=== PATIENT | male | born 1935 | race Caucasian/White ===

== ENCOUNTER 2017-06-09 18:23 | Inpatient (IN) | payer BC, MEDICARE ==
[~2017-06-09] VITALS: Ht 182.9 cm; Wt 99.4 kg
[~2017-06-09 18:23] MED LIST: ACET325T53 GT; CALC3.8S NS; DIGO250T PO; IPRA3AMP IH; LACT10SO43 GT; LAMO100T PO; LORA1TAB PO; MELA1TAB10 GT; MULT9LIQ6 GT; ONDA4TAB5 GT; SENN8.6T6 GT; THIA100T13 PO; ZOLP5TAB7 PO; [UNRECOGNIZED DRUG - CODE] GT
[2017-06-09] MEDS ORDERED: LEVETIRACETAM (500MG) 500 MG in IV NS 0.9% 100 ML IV SCH (18:30)
--- NOTE | 2017-06-09 18:30 | NUR ---
PATIENT BIB RA D/T SEIZURE AT HOME. PATIENT IS ALTERED CURRENTLY. BREATHING EVEN AND UNLABORED. BLOOD SUGAR WNL. NO SOB. VITALS STABLE. SAFETY AND COMFORT MEASURES IN PLACE. AWAITING MD ORDERS.
[2017-06-09 18:39] LABS: BASOPHILS # (AUTO) 0.2 /CMM (0.0-0.2); EOSINOPHILS # (AUTO) 0.5 /CMM (0.0-0.7); EOSINOPHILS % (AUTO) 2.8 % (0.0-6.0); HEMATOCRIT 44 % (39-51); HEMOGLOBIN 14.5 g/dL (13.5-17.5); LYMPHOCYTES # (AUTO) 4.4 /CMM (0.8-4.8); LYMPHOCYTES % (AUTO) 26.9 % (20.0-44.0); MEAN CORPUSCULAR HEMOGLOBIN 29 PG (26.0-33.0); MEAN CORPUSCULAR HGB CONC 33 g/dl (31.0-36.0); MEAN CORPUSCULAR VOLUME 90 fL (80-96); MONOCYTES # (AUTO) 1.9 /CMM (0.1-1.30); MONOCYTES % (AUTO) 11.5 % (2.0-12.0); NEUTROPHILS # (AUTO) 9.3 /CMM (1.8-8.9); NEUTROPHILS % (AUTO) 57.8 % (43.0-81.0); PLATELET COUNT (AUTO) 259 /CMM (150-450); RDW COEFFICIENT OF VARIATION 13.4 (11.5-15.0); RED BLOOD CELL COUNT(AUTO) 4.94 MIL/uL (4.5-6.0); WHITE BLOOD COUNT (AUTO) 16.3 K/uL (4.3-11.0)
--- NOTE | 2017-06-09 18:40 | NUR ---
NEW IV STARTED ON RAC, 18 G. BLOOD DRAWN AND SENT TO LAB. RECTAL TEMP 98.3, DR. ROSA MADE AWARE.
--- NOTE | 2017-06-09 18:45 | NUR ---
PATIENT TAKEN TO CT VIA STRETCHER.
[2017-06-09 18:49] LABS: CALCIUM, SERUM 8.9 mg/dL (8.5-10.1); CARBON DIOXIDE 27 mmol/L (21-32); CHLORIDE 100 mmol/L (98-107); CREATININE 1.2 mg/dL (0.6-1.3); GLUCOSE 121 mg/dL (74-106); POTASSIUM 4.4 mmol/L (3.5-5.1); SODIUM SERUM 139 mmol/L (136-145); UREA NITROGEN, BLOOD 18 mg/dL (7-18)
[2017-06-09 18:53] LABS: INR 1.05 (0.87-1.13); PROTHROMBIN TIME 10.9 SECS (9.5-12.7)
[2017-06-09 18:55] LABS: ALANINE AMINOTRANSFERASE 33 U/L (12-78); ALBUMIN 3.1 g/dL (3.4-5.0); ALKALINE PHOSPHATASE 70 U/L (46-116); ASPARTATE AMINOTRANSFERASE 24 U/L (15-37); BILIRUBIN,DIRECT 0.1 mg/dL (0.0-0.2); BILIRUBIN,TOTAL 0.3 mg/dL (0.2-1.0); TOTAL PROTEIN, SERUM 7.8 g/dL (6.4-8.2)
[2017-06-09 19:00] LABS: TROPONIN I < 0.017 ng/mL (0.00-0.056)
--- NOTE | 2017-06-09 19:05 | NUR ---
PATIENT RETURNED FROM CT.
--- NOTE | 2017-06-09 19:10 | NUR ---
REPORT GIVEN TO LINNETTE FRANCISCO FOR GUILLERMINA.
[2017-06-09 19:21] LABS: APPEARANCE,URINE Clear (CLEAR); BILIRUBIN,URINE Negative (NEGATIVE); BLOOD, URINE Negative Ery/uL (NEGATIVE); COLOR,URINE Yellow (YELLOW); KETONES,URINE Negative (NEGATIVE); LEUKOCYTE ESTERASE ,URINE Negative (NEGATIVE); NITRITE, URINE Positive (NEGATIVE); PROTEIN,URINE Negative (NEGATIVE); UGLUCOSE Negative (NEGATIVE); UROBILINOGEN,URINE 0.2 EU/dL (0.2)
[2017-06-09 19:24] LABS: BACTERIA,URINE Moderate /HPF (None Seen); RBC,URINE 0-2 /HPF (0-2); SQUAMOUS EPITHELIAL CELL,UR Few /HPF (None Seen); WBC,URINE 0-2 /HPF (0-3)
[2017-06-09] MEDS ORDERED: PIPERACILLIN /TAZOBACTAM 3.375 G in IV D5W 50 ML IV ONE (20:00)
--- NOTE | 2017-06-09 20:09 | NUR ---
CALLED NURSING SUP. FOR [facility] BED
[2017-06-09 20:24] LABS: BAND % (MANUAL) 3 % (0.0-5.0); LYMPHOCYTES % (MANUAL) 26 % (16-48); MONOCYTES % (MANUAL) 9 % (0-11.0); NEUTROPHILS % (MANUAL) 60 (42-76)
[2017-06-09 20:25] LABS: EOSINOPHILS % (MANUAL) 2 % (0-4)
[2017-06-09] MEDS ORDERED: IV NS 0.9% 1,000 ML BAG IV ONE (20:30)
[2017-06-09] MEDS ORDERED: VANCOMYCIN 1 GM in IV D5W 250 ML IV ONE (20:30)
--- NOTE | 2017-06-09 21:09 | NUR ---
LINDSAY MASSEY, SON,
[2017-06-09] MEDS ORDERED: LORAZEPAM 1 MG TABLET PO PRN (22:30)
[2017-06-09] MEDS ORDERED: ONDANSETRON HCL/PF 4 MG/2 ML VIAL IVP PRN (22:30)
[2017-06-09] MEDS ORDERED: Medication Not On Formulary EA (Ipratropium/Albuterol Sulfate (Duoneb 2.5-0.5 Mg/3 Ml So IH PRN (22:30)
[2017-06-09] MEDS ORDERED: MAGNESIUM HYDROXIDE 30 ML UDC PO PRN (22:30)
[2017-06-09] MEDS ORDERED: Medication Not On Formulary EA (Melatonin/Pyridoxine (Melatonin 3 Mg Tablet) 1 EACH) GT PRN (22:30)
[2017-06-09] MEDS ORDERED: Z GUARD REMEDY 2 OZ OINT TP PRN (22:30)
[2017-06-09] MEDS ORDERED: ACETAMINOPHEN 325 MG TABLET PO PRN (22:30)
[2017-06-09] MEDS ORDERED: ZOLPIDEM TARTRATE 5 MG TABLET PO PRN (22:30)
[2017-06-09] MEDS ORDERED: MAG HYDROX/AL HYDROX/SIMETH 30 ML UDC PO PRN (22:30)
--- NOTE | 2017-06-09 22:30 | NUR ---
[facility] RN NOTE ADMITTED 81 YEARS OLD MALE PT FROM ER WITH THE DX OF SEIZURE AND SEPSIS BY TAMANNA HART NP. PT IN BED ALOC. MUMBLES ONLY. NO SOB, NO DISTRESS OR DISCOMFORT NOTED. NO S/S OF PAIN NOTED. PT IS GETTING NS IV FLUIDS DUE TO HIGH LACTIC ACID WHICH IS CONTINUE FROM ER. NO S/S OF INFILTRATION NOTED. F/C INTACT AND PATENT DRAINING YELLOWISH COLOR URINE 850 ML OUTPUT NOTED AT THIS TIME. SKIN ASSESSMENT DONE. PICTURES TAKEN AND PLACE THEM IN THE CHART. ADMITTING ORDERS CHECKED AND CARRIED OUT. ON TELE SR HR 83. SIDE RAILS UP X 3 AND CALL LIGHT WITHIN REACH. VSS. CONTINUE TO MONITOR HIM. Addendum: 06/09/17 at 2317 by CLEVELAND KONG RN PT PLACED ON SEIZURE PRECAUTIONS.
[2017-06-09] MEDS ORDERED: CEFTRIAXONE 1 G VIAL ONE (23:22)
[2017-06-09] MEDS: IV NS 0.9% 1,000 ML IV PRN (23:32)
[2017-06-09] MEDS: CEFTRIAXONE 1 G in IV D5W 50 ML IV SCH (23:32)
--- NOTE | 2017-06-09 23:35 | NUR ---
STEAM CLEAN MACHINE OPERATOR NOTE PT IS UNDER TELE UNIT NOT [facility]
[2017-06-10 04:00] VITALS: BP 125/72
[2017-06-10 06:33] LABS: BASOPHILS % (AUTO) 0.3 % (0.0-2.0); EOSINOPHILS # (AUTO) 0.3 /CMM (0.0-0.7); EOSINOPHILS % (AUTO) 1.8 % (0.0-6.0); HEMATOCRIT 40 % (39-51); HEMOGLOBIN 13.5 g/dL (13.5-17.5); LYMPHOCYTES # (AUTO) 2.1 /CMM (0.8-4.8); LYMPHOCYTES % (AUTO) 14.2 % (20.0-44.0); MEAN CORPUSCULAR HEMOGLOBIN 30 PG (26.0-33.0); MEAN CORPUSCULAR HGB CONC 34 g/dl (31.0-36.0); MEAN CORPUSCULAR VOLUME 89 fL (80-96); MONOCYTES # (AUTO) 1.6 /CMM (0.1-1.30); MONOCYTES % (AUTO) 10.6 % (2.0-12.0); NEUTROPHILS # (AUTO) 10.8 /CMM (1.8-8.9); NEUTROPHILS % (AUTO) 73.1 % (43.0-81.0); PLATELET COUNT (AUTO) 210 /CMM (150-450); RDW COEFFICIENT OF VARIATION 14.2 (11.5-15.0); RED BLOOD CELL COUNT(AUTO) 4.47 MIL/uL (4.5-6.0); WHITE BLOOD COUNT (AUTO) 14.7 K/uL (4.3-11.0)
--- NOTE | 2017-06-10 06:34 | NUR ---
ADVISOR TO COMMAND IN COMBAT NOTE PT IN BED ASLEEP, AROUSABLE. NO DISTRESS OR DISCOMFORT NOTED. NO SS OF PAIN NOTED. ON TELE SR. BM X 1. CONDOM CATH INTACT AND PATENT. DRAINING YELLOWISH COLOR URINE. SIDE RAILS UP X 3 AND CALL LIGHT WITHIN REACH. WILL ENDORSE TO DAY SHIFT NURSE FOR CONTINUE TO CARE.
[2017-06-10 07:00] LABS: CALCIUM, SERUM 7.6 mg/dL (8.5-10.1); CARBON DIOXIDE 25 mmol/L (21-32); CHLORIDE 107 mmol/L (98-107); GLUCOSE 100 mg/dL (74-106); MAGNESIUM 2.1 mg/dL (1.8-2.4); POTASSIUM 4.5 mmol/L (3.5-5.1); SODIUM SERUM 142 mmol/L (136-145); UREA NITROGEN, BLOOD 15 mg/dL (7-18)
[2017-06-10 07:01] LABS: CHOLESTEROL 130 mg/dL (<200); HDL CHOLESTEROL 37 mg/dL (40-60); LDL 82 mg/dL (0-99); THYROID STIMULATING HORMONE 3.665 uIU/mL (0.358-3.74); TRIGLYCERIDES 94 mg/dL (30-150)
[2017-06-10] MEDS: PANTOPRAZOLE 40 MG TABLET.DR PO SCH (07:30)
--- NOTE | 2017-06-10 07:35 | NUR ---
TRAFFIC ENUMERATOR INITIAL NOTE RECEIVED PT IN NO ACUTE DISTRESS. ON TELE WITH SR 83. RIGHT AC 18 G NS RUNNING AT 100CC/HR. PATIENT PENDING FURTHER EVALUATION PER - CURRENTLY NPO PENDING VISIT G-TUBE CLAMPED. PT COMFORTABLE POSITION IN BED. SAFETY/COMFORT MEASURES PLACED RN WILL CONTINUE TO MONITOR.
[2017-06-10 08:00] VITALS: BP 133/68
[2017-06-10] MEDS ORDERED: IPRATROPIUM NEB FS 0.5 MG/2.5 ML AMPUL.NEB NEB PRN (09:00)
[2017-06-10] MEDS: SENNOSIDES 8.6 MG TABLET GT SCH (09:00)
[2017-06-10] MEDS: THIAMINE HCL 100 MG TABLET PO SCH (09:00)
[2017-06-10] MEDS ORDERED: MULTIVITS,TH W-FE,OTHER MIN 1 TAB TABLET GT SCH (09:00)
[2017-06-10] MEDS: LamoTRIgine 100 MG TABLET PO SCH ×2 (09:00→17:42)
[2017-06-10] MEDS: CALCITONIN,SALMON,SYNTHETIC 3.7 ML SPRAY.PUMP NS SCH (09:00)
[2017-06-10] MEDS ORDERED: ALBUTEROL FS 2.5 MG/3 ML VIAL.NEB NEB PRN (09:00)
[2017-06-10] MEDS ORDERED: LACTULOSE 10 G/15 ML UDC (PYXIS) GT PRN (09:00)
[2017-06-10] MEDS: LEVETIRACETAM (500MG) 500 MG in IV NS 0.9% 100 ML IV SCH ×2 (12:12→20:37)
[2017-06-10] MEDS: DIGOXIN 0.25 MG TABLET PO SCH (13:00)
[2017-06-10] MEDS: IV NS 0.9% 1,000 ML IV PRN (15:59)
--- NOTE | 2017-06-10 18:54 | NUR ---
RN NOTE RN CONTACTED MD ANGLIN IN REGARDS TO ORDERING A 1X TIME DOSE OF PAIN MEDICATION FOR THE PATIENT. DURING BED BATH IT WAS NOTED THAT THE PATIENT HAS SCROTUM REDNESS AND PAIN NOTED. PT SON REQUESTING PAIN MEDICATION. TYLENOL 650 MG OFFERED BUT THE SON REQUEST SOMETHING STRONGER. IT SHOULD ALSO BE NOTED THAT THE PATIENT HAS REDNESS AT G-TUBE SITE. AND PAIN NOTED RN AWAITING RETURN PHONE CALL , RN HAS CONTACTED THE KITCHEN IN REGARDS TO THE PATIENT TUBE FEEDING FOR FIBERSOURCE X3 TIMES KITCHEN STATES THAT THEY WILL BRING THE TUBE FEEDING SOON POSSIBLE RN WILL ENDORSE TO PM NURSE.
--- NOTE | 2017-06-10 19:05 | NUR ---
RN OPENING NOTES RECEIVED REPORT FROM WARREN FRANCISCO. PATIENT A/A/O X2-3. ON O2 @ 2LPM VIA NC, NO RESPIRATORY DISTRESS NOTED. BREATHING EVEN AND UNLABORED. ON TELE, SR IN THE 70S. NO S/S OF PAIN OR DISCOMFORT. RAC #18 CDI. G-TUBE INTACT, ABDOMINAL BINDER IN PLACE. SIDE RAILS UP, BED LOCKED AND IN LOWEST POSITION. WILL CONTINUE TO MONITOR.
--- NOTE | 2017-06-10 19:47 | NUR ---
RN END OF SHIFT NOTE PT STABLE REPORT GIVEN TO PM NURSE ENDORSED CONTINUATION OF CARE ON 2 L NC. PATIENT ALERT / ORIENTED x 1-2 . ALL NEEDS ATTENDED.
[2017-06-10 20:00] VITALS: BP 134/70
[2017-06-10] MEDS: CEFTRIAXONE 1 G in IV D5W 50 ML IV SCH (22:13)
[2017-06-11] VITALS: BP 127/58
[2017-06-11] MEDS: IV NS 0.9% 1,000 ML IV PRN ×2 (03:41→15:15)
[2017-06-11 04:00] VITALS: BP 101/52
[2017-06-11] MEDS: FIBERSOURCE HN 1,000 ML BOTTLE GT PRN ×2 (05:57→16:25)
[2017-06-11 06:32] LABS: BASOPHILS % (AUTO) 0.3 % (0.0-2.0); EOSINOPHILS # (AUTO) 0.2 /CMM (0.0-0.7); EOSINOPHILS % (AUTO) 1.5 % (0.0-6.0); HEMATOCRIT 41 % (39-51); HEMOGLOBIN 13.7 g/dL (13.5-17.5); LYMPHOCYTES # (AUTO) 3.4 /CMM (0.8-4.8); LYMPHOCYTES % (AUTO) 21.5 % (20.0-44.0); MEAN CORPUSCULAR HEMOGLOBIN 30 PG (26.0-33.0); MEAN CORPUSCULAR HGB CONC 34 g/dl (31.0-36.0); MEAN CORPUSCULAR VOLUME 90 fL (80-96); MONOCYTES % (AUTO) 12.4 % (2.0-12.0); NEUTROPHILS # (AUTO) 10.3 /CMM (1.8-8.9); NEUTROPHILS % (AUTO) 64.3 % (43.0-81.0); PLATELET COUNT (AUTO) 178 /CMM (150-450); RDW COEFFICIENT OF VARIATION 14.7 (11.5-15.0); RED BLOOD CELL COUNT(AUTO) 4.53 MIL/uL (4.5-6.0); WHITE BLOOD COUNT (AUTO) 15.9 K/uL (4.3-11.0)
[2017-06-11 06:48] LABS: CALCIUM, SERUM 7.8 mg/dL (8.5-10.1); CARBON DIOXIDE 26 mmol/L (21-32); CHLORIDE 107 mmol/L (98-107); GLUCOSE 124 mg/dL (74-106); MAGNESIUM 2.3 mg/dL (1.8-2.4); PHOSPHORUS 2.4 mg/dL (2.5-4.9); POTASSIUM 4.2 mmol/L (3.5-5.1); SODIUM SERUM 141 mmol/L (136-145); UREA NITROGEN, BLOOD 18 mg/dL (7-18)
--- NOTE | 2017-06-11 07:15 | NUR ---
RN CLOSING NOTES PATIENT ASLEEP IN BED. NO ACUTE MENTAL CHANGES NOTED, NO SEIZURES SURING SHIFT. NO RESPIRATORY DISTRESS OR SOB THROUGHOUT SHIFT ON O2 @ 2LPM VIA NC. GT INTACT AND FLUSHING W/ FIBERSOURCE HN @ 75 ML/HR, TOLERATED WELL. EMESIS X1 DURING SHIFT, RELIEVED BY PRN ZOFRAN. WILL ENDORSE GUILLERMINA TO AM NURSE.
--- NOTE | 2017-06-11 07:15 | NUR ---
[facility] INITIAL RN NOTE: RECEIVED PT AWAKE IN BED W/NO SIGNS OF DISTRESS, A&OX1. ON O2 @ 2LPM VIA NC WITH NO SOB. RESPIRATIONS EVEN AND UNLABORED. ON TELE MONITOR SR. HEP LOCK INFILTRATED WILL INSERT NEW ONE. NS RUNNING AT 100 CC/HR. GT INTACT W/FIBERSOURCE HN AT 75CC/HR, REDNESS NOTED, 30CC RESIDUAL. HAS ABDOMINAL BINDER. BED KEPT LOCKED AND IN LOWEST POSITION W/SIDE RAILS UP WITH PADDING. CALL LIGHT WITHIN REACH. ALL NEEDS MET AND ANTICIPATED. WILL CONTINUE TO MONITOR.
[2017-06-11 07:48] LABS: EOSINOPHILS % (MANUAL) 2 % (0-4); LYMPHOCYTES % (MANUAL) 17 % (16-48); MONOCYTES % (MANUAL) 5 % (0-11.0); NEUTROPHILS % (MANUAL) 76 (42-76)
[2017-06-11 08:00] VITALS: BP 116/71
[2017-06-11] MEDS: LEVETIRACETAM (500MG) 500 MG in IV NS 0.9% 100 ML IV SCH ×2 (09:23→21:41)
[2017-06-11] MEDS: SENNOSIDES 8.6 MG TABLET GT SCH (09:23)
[2017-06-11] MEDS: LamoTRIgine 100 MG TABLET PO SCH ×2 (09:23→16:22)
[2017-06-11] MEDS: THIAMINE HCL 100 MG TABLET PO SCH (09:23)
[2017-06-11] MEDS: MULTIVIT, IRON, MIN NO. 8, FA 1 TAB GT SCH (09:23)
[2017-06-11] MEDS: SULFAMETH/TRIMETH 800/160 MG 1 UDTAB TABLET PO SCH ×2 (09:23→21:41)
[2017-06-11] MEDS: CALCITONIN,SALMON,SYNTHETIC 3.7 ML SPRAY.PUMP NS SCH (09:23)
[2017-06-11] MEDS: PANTOPRAZOLE 40 MG TABLET.DR PO SCH (09:24)
--- NOTE | 2017-06-11 09:30 | NUR ---
OPERATIONAL INTELLIGENCE ANALYST NOTE: DR. ANGLIN AT BEDSIDE. NOTIFIED OF UNABLE TO INSERT IV AT ARM. OK TO INSERT IV AT FOOT PER DR. ANGLIN. NEW ORDER GIVEN AND CARRIED OUT.
--- NOTE | 2017-06-11 10:00 | NUR ---
HEEL CUTTER NOTE: PATIENT SEEN BY DR MAYERS AT BEDSIDE. PT EVAL AND DVT PUMP ORDERED. WILL FOLLOW UP.
[2017-06-11 10:45] LABS: FREE PSA 0.42 ng/mL (0.00-45); PROSTATE SPECIFIC ANTIGEN SCR 7.04 ng/mL (0.00-4.00)
[2017-06-11 12:00] VITALS: BP 129/66
--- NOTE | 2017-06-11 13:00 | NUR ---
AVIATION SAFETY INSPECTOR NOTE SEEN BY PT UNABLE TO GET UP ON CHAIR, UNABLE TO STAND UP ,WILL F\U
[2017-06-11] MEDS: DIGOXIN 0.25 MG TABLET PO SCH (13:03)
[2017-06-11 16:00] VITALS: BP 138/60
[2017-06-11] MEDS ORDERED: NEUTRA PHOS 1 POWD.PACKET NG ONE (16:00)
--- NOTE | 2017-06-11 16:30 | NUR ---
BRIM WELT SEWING MACHINE OPERATOR NOTE CONT ON IVF ORDERED,ON DVT PUMPS ORDERED .NOT IN ACUTE DISTRESS
--- NOTE | 2017-06-11 18:57 | NUR ---
LICENSED PHYSICAL THERAPIST ASSISTANT CLOSING NOTES: PATIENT AWAKE IN BED W/NO C/O PAIN. ON O2 @ 2LPM VIA W/NO SOB OR RESPIRATORY DISTRESS. GT INTACT AND FLUSHING W/ FIBERSOURCE HN @ 75 CC/HR, TOLERATED WELL. HAS ABDOMINAL BINDER. NS RUNNING AT 100CC/HR. DVT PUMP APPLIED. BED KEPT LOCKED AND IN LOWEST POSITION W/SIDE RAILS UP WITH PADDING. CALL LIGHT WITHIN REACH. WILL ENDORSE TO PM NURSE FOR GUILLERMINA.
--- NOTE | 2017-06-11 19:40 | NUR ---
TELE/RN NOTES RECEIVED PT IN STABLE CONDITION. AWAKE, A&OX 1, PLEASANT MAN. O2 1L NC. TELE READING NSR. L FOOT IV #24 WITH NS @ 100 ML/HR INFUSING WELL, SITE CDI. GTF FIBERSOURCE @ 75 ML/HR IN PROGRESS, RESIDUAL 5ML, SITE CDI AND COVERED WITH ABDOMINAL BINDER. INCONTINENT. DENIES PAIN, N/V. NO CONCERNS MADE. PT MADE AWARE OF PLAN OF CARE INCLUDING MEDICATION SCHEDULED. PT RESPONDS WITH "OK" AND STARTS TALKING ABOUT OTHER TOPICS. DVT PUMP IN PLACE. BED AT LOWEST POSITION AND LOCKED, SRX3 UP, SIDE TABLE AND CALL GAMEZ WITHIN REACH. BED ALARM ON. WILL CONTINUE TO MONITOR. Addendum: 06/12/17 at 0002 by SILVA BANSAL RN SDTI TO JAYME BUTTOCKS, BLANCHABLE. TURNED AND REPOSITIONED. WILL KEEP SKIN CLEAN, DRY AND INTACT.
[2017-06-11 20:00] VITALS: BP 133/69
--- NOTE | 2017-06-11 22:00 | NUR ---
TELE/RN NOTES PURPLISH COLOR TO JAYME BUTTOCKS, BLANCHABLE. APPLIED Z-GUARD. TURNED AND REPOSITIONED. WILL KEEP SKIN CLEAN, DRY AND INTACT.
[2017-06-11] MEDS: CEFTRIAXONE 1 G in IV D5W 50 ML IV SCH (22:39)
[2017-06-12] VITALS (9 sets, daily range): BP systolic 105–141; BP diastolic 62–87
[2017-06-12 05:50] LABS: BASOPHILS # (AUTO) 0.2 /CMM (0.0-0.2); BASOPHILS % (AUTO) 1.3 % (0.0-2.0); EOSINOPHILS # (AUTO) 0.5 /CMM (0.0-0.7); EOSINOPHILS % (AUTO) 3.5 % (0.0-6.0); HEMATOCRIT 37 % (39-51); HEMOGLOBIN 12.8 g/dL (13.5-17.5); LYMPHOCYTES # (AUTO) 2.9 /CMM (0.8-4.8); LYMPHOCYTES % (AUTO) 21.9 % (20.0-44.0); MEAN CORPUSCULAR HEMOGLOBIN 31 PG (26.0-33.0); MEAN CORPUSCULAR HGB CONC 34 g/dl (31.0-36.0); MEAN CORPUSCULAR VOLUME 89 fL (80-96); MONOCYTES # (AUTO) 1.4 /CMM (0.1-1.30); MONOCYTES % (AUTO) 10.9 % (2.0-12.0); NEUTROPHILS # (AUTO) 8.2 /CMM (1.8-8.9); NEUTROPHILS % (AUTO) 62.4 % (43.0-81.0); PLATELET COUNT (AUTO) 172 /CMM (150-450); RDW COEFFICIENT OF VARIATION 14.6 (11.5-15.0); RED BLOOD CELL COUNT(AUTO) 4.17 MIL/uL (4.5-6.0); WHITE BLOOD COUNT (AUTO) 13.2 K/uL (4.3-11.0)
[2017-06-12 06:05] LABS: CALCIUM, SERUM 7.6 mg/dL (8.5-10.1); CARBON DIOXIDE 24 mmol/L (21-32); CHLORIDE 107 mmol/L (98-107); CREATININE 0.9 mg/dL (0.6-1.3); GLUCOSE 124 mg/dL (74-106); PHOSPHORUS 2.6 mg/dL (2.5-4.9); POTASSIUM 4.1 mmol/L (3.5-5.1); SODIUM SERUM 139 mmol/L (136-145); UREA NITROGEN, BLOOD 16 mg/dL (7-18)
[2017-06-12] MEDS: IV NS 0.9% 1,000 ML IV PRN ×2 (06:19→18:19)
--- NOTE | 2017-06-12 07:25 | NUR ---
TELE/RN NOTES NO SIGNIFICANT CHANGES. A&OX1, TALKING TO SELF. BREATHING EVENLY ON O2 1L NC. TELE READING NSR. IVF AND GT FEEDING IN PROGRESS. INCONTINENT. KEPT SKIN CLEAN, DRY AND INTACT. TURNED AND REPOSITIONED Q2H AND PATIENT PERMITS. NO EPISODE OF SEIZURE AND DENIES PAIN THE ENTIRE SHIFT. ENDORSED TO AM SHIFT FOR CONTINUITY OF CARE. SAFETY MAINTAINED, INCLUDING SIDE RAILS PADDED. SIDE TABLE AND CALL GAMEZ WITHIN REACH.
--- NOTE | 2017-06-12 07:38 | NUR ---
CURTAIN FRAMER NOTES RECEIVED PT IN BED AWAKE WITH CONFUSION. ON TELE MONITOR SR. PT HAS PADDED SIDE RAILS, SEIZURE PRECAUTION FOR SAFETY. GTUBE RUNNING, NO RESIDUAL. HOB ELEVATED. L FOOT IV HEP LOCK IN TACT, NO SIGNS OF INFECTION. ON IV FLUIDS ORDERED. DVT PUMPS ON BOTH LEGS. PT ON 2 L NASAL CANNULA SATING 94%. BED IN LOWEST POSITION, LOCKED, CALL LIGHT WITHIN REACH. WILL CONTINUE TO MONITOR.
--- NOTE | 2017-06-12 08:03 | NUR ---
SPOKE WITH YADI REGARDING NEW ORDER UA FOR PROSTATITIS. WILL F/O WITH .
[2017-06-12] MEDS: MULTIVIT, IRON, MIN NO. 8, FA 1 TAB GT SCH (08:20)
[2017-06-12] MEDS: SULFAMETH/TRIMETH 800/160 MG 1 UDTAB TABLET PO SCH ×2 (08:20→21:36)
[2017-06-12] MEDS: THIAMINE HCL 100 MG TABLET PO SCH (08:20)
[2017-06-12] MEDS: SENNOSIDES 8.6 MG TABLET GT SCH (08:20)
[2017-06-12] MEDS: LamoTRIgine 100 MG TABLET PO SCH ×2 (08:20→16:32)
[2017-06-12] MEDS: PANTOPRAZOLE 40 MG TABLET.DR PO SCH (08:20)
[2017-06-12] MEDS: CALCITONIN,SALMON,SYNTHETIC 3.7 ML SPRAY.PUMP NS SCH (08:21)
[2017-06-12] MEDS: FIBERSOURCE HN 1,000 ML BOTTLE GT PRN (08:22)
[2017-06-12] MEDS: LEVETIRACETAM SOL (5 ML) 100 MG/ML UDC GT SCH ×2 (08:35→21:36)
--- NOTE | 2017-06-12 11:14 | NUR ---
LACROSSE PLAYER NOTES UA COLLECTED ORDERED FOR PROCTITIS. NEW IV INSERT R HAND GAUGE 22. PT REPOSITIONED. SKIN CLEAN AND DRY. CALL LIGHT WITHIN REACH. WILL CONTINUE TO MONITOR.
[2017-06-12] MEDS: DIGOXIN 0.25 MG TABLET PO SCH (12:18)
--- NOTE | 2017-06-12 14:00 | NUR ---
telegraph office manager note all needs attended ,not in acute distress, keep clean dryn,cont on ivf as ordered
--- NOTE | 2017-06-12 17:19 | NUR ---
DIRECTOR OF PROMOTIONS NOTES PT RESTING COMFORTABLY WITH SON AT BEDSIDE. GTUBE FEEDING RUNNING NO RESIDUAL. NO SOB NOTED. WILL CONTINUE TO MONITOR.
--- NOTE | 2017-06-12 17:43 | NUR ---
CATEGORY MANAGER NEW ORDER FOR UA CULTURE , CALLED LAB SPOKE TO CATHI TRAMMELL TO USE THE SAME URINE SPECIMEN FROM THIS AM THAT WAS SENT FOR PROCTITIS PATHOGENS.
--- NOTE | 2017-06-12 19:01 | NUR ---
ELECTROENCEPHALOGRAM TECHNOLOGIST NOTES PT SLEEPING COMFORTABLY IN BED, SATING WELL. NO DISTRESS NOTED. IV FLUIDS RUNNING. SIDE RAILS UP X3, BED LOCKED AND IN LOWEST POSITION, SEIZURE PRECAUTIONS, CALL LIGHT WITHIN REACH.
[2017-06-12] MEDS: CEFTRIAXONE 1 G in IV D5W 50 ML IV SCH (22:05)
[2017-06-13] VITALS: BP 125/57
[2017-06-13] MEDS: FIBERSOURCE HN 1,000 ML BOTTLE GT PRN ×2 (01:13→15:20)
[2017-06-13 04:00] VITALS: BP 117/63
[2017-06-13] MEDS: IV NS 0.9% 1,000 ML IV PRN ×2 (04:43→18:07)
[2017-06-13 06:43] LABS: BASOPHILS # (AUTO) 0.1 /CMM (0.0-0.2); BASOPHILS % (AUTO) 0.5 % (0.0-2.0); EOSINOPHILS # (AUTO) 0.5 /CMM (0.0-0.7); EOSINOPHILS % (AUTO) 4.4 % (0.0-6.0); HEMATOCRIT 37 % (39-51); HEMOGLOBIN 12.4 g/dL (13.5-17.5); LYMPHOCYTES # (AUTO) 2.5 /CMM (0.8-4.8); LYMPHOCYTES % (AUTO) 21.7 % (20.0-44.0); MEAN CORPUSCULAR HEMOGLOBIN 30 PG (26.0-33.0); MEAN CORPUSCULAR HGB CONC 34 g/dl (31.0-36.0); MEAN CORPUSCULAR VOLUME 90 fL (80-96); MONOCYTES # (AUTO) 1.4 /CMM (0.1-1.30); MONOCYTES % (AUTO) 12.2 % (2.0-12.0); NEUTROPHILS # (AUTO) 7.1 /CMM (1.8-8.9); NEUTROPHILS % (AUTO) 61.2 % (43.0-81.0); PLATELET COUNT (AUTO) 163 /CMM (150-450); RDW COEFFICIENT OF VARIATION 14.6 (11.5-15.0); WHITE BLOOD COUNT (AUTO) 11.5 K/uL (4.3-11.0)
[2017-06-13 07:18] LABS: CALCIUM, SERUM 7.4 mg/dL (8.5-10.1); CARBON DIOXIDE 25 mmol/L (21-32); CHLORIDE 107 mmol/L (98-107); GLUCOSE 106 mg/dL (74-106); PHOSPHORUS 2.6 mg/dL (2.5-4.9); POTASSIUM 4.1 mmol/L (3.5-5.1); SODIUM SERUM 140 mmol/L (136-145); UREA NITROGEN, BLOOD 11 mg/dL (7-18)
--- NOTE | 2017-06-13 07:21 | NUR ---
DEMONSTRATOR SEWING TECHNIQUES opening NOTES PT RECEIVED ASLEEP IN BED IN NO ACUTE SIGNS OF DISTRESS. APPEARS COMFORTABLE WITH SUPPLEMENTAL 02 VIA N/C AT 2LPM, BREATHING EVEN AND UN-LABORED. WILL CONTINUE SEIZURE PRECAUTIONS. IV FLUIDS OF NS @ 100ML/HR INFUSING TO RIGHT HAND. G-TUBE INTACT AND PATENT WITH FEEDING OF FIBER SOURCE AT 75ML/HR RUNNING. ASPIRATION PRECAUTIONS MAINTAINED. BED WITH SIDE RAILS UP X3, LOCKED AND IN LOWEST POSITION, CALL LIGHT WITHIN REACH. WILL MAINTAIN ALL SAFETY MEASURES AND WILL CONTINUE TO MONITOR PT ACCORDINGLY.
[2017-06-13 08:00] VITALS: BP 120/69
[2017-06-13] MEDS: MULTIVIT, IRON, MIN NO. 8, FA 1 TAB GT SCH (08:41)
[2017-06-13] MEDS: PANTOPRAZOLE 40 MG TABLET.DR PO SCH (08:41)
[2017-06-13] MEDS: LamoTRIgine 100 MG TABLET PO SCH ×2 (08:41→17:03)
[2017-06-13] MEDS: THIAMINE HCL 100 MG TABLET PO SCH (08:41)
[2017-06-13] MEDS: SENNOSIDES 8.6 MG TABLET GT SCH (08:41)
[2017-06-13] MEDS: LEVETIRACETAM SOL (5 ML) 100 MG/ML UDC GT SCH ×2 (08:42→21:05)
[2017-06-13] MEDS: SULFAMETH/TRIMETH 800/160 MG 1 UDTAB TABLET PO SCH ×2 (08:42→21:05)
[2017-06-13] MEDS: CALCITONIN,SALMON,SYNTHETIC 3.7 ML SPRAY.PUMP NS SCH (08:43)
--- NOTE | 2017-06-13 09:34 | NUR ---
RN NOTES PATIENT SEEN AND EVALUATED BY DR LEE, ORDERED TELE-MONITORING TO BE DISCONTINUED. ORDERED CARRIED OUT, NO S/S OF CHEST PAIN OT DISCOMFORTS OBSERVED. WILL CONTINUE TO MONITOR.
[2017-06-13] MEDS: DIGOXIN 0.25 MG TABLET PO SCH (12:16)
[2017-06-13 16:00] VITALS: BP 137/67
--- NOTE | 2017-06-13 18:45 | NUR ---
RN CLOSING NOTES PT RESTING IN BED AWAKE, ALERT AND ORIENTED X1. NO SIGNIFICANT CHANGES NOTED THROUGHOUT THE DAY. MAINTAINED ON 02 VIA N/C AT 2LPM, BREATHING EVEN AND UN-LABORED, NO SOB NOTED. IV FLUIDS OF NS @ 100ML/HR INFUSING TO RIGHT HAND. G-TUBE INTACT AND PATENT WITH FEEDING OF FIBER SOURCE @ 75ML/HR IN PROGRESS. ASPIRATION PRECAUTIONS MAINTAINED. NO SEIZURE ACTIVITY NOTED . KEPT BED WITH SIDE RAILS UP X3, LOCKED AND IN LOWEST POSITION, CALL LIGHT WITHIN REACH. MAINTAINED ALL SAFETY AND SEIZURE PRECAUTIONS. ALL NEEDS AND CARE PROVIDED WELL. WILL ENDORSED TO SALESPERSON SHOES NURSE FOR GUILLERMINA.
--- NOTE | 2017-06-13 19:22 | NUR ---
RN NOTES PER DAY SHIFT NURSE DR ROSA PANDEY ORDERED TO DOWNGRADE TO MED/SURG STATUS BUT CURRENT ORDER STILL FOR TELE, NO CURRENT TELEMETRY MONITORING. ORDER CHANGED FOR MED/SURG STATUS
--- NOTE | 2017-06-13 19:30 | NUR ---
RN INITIAL NOTES RECEIVED PATIENT IN BED, AWAKE, ALERT AND ORIENTED X1, CONFUSED. BREATHING IS EVEN AND NONLABORED WHILE ON O2 VIA NASAL CANNULA @ 2LPM, TOLERATING WELL, FREE FROM ANY S/S OF RESPIRATORY DISTRESS. ON GTF OF FBS @ 75ML/HR, TOLERATING WELL, NO GASTRIC RESIDUALS AT THIS TIME. NOTED WITH R HAND #[id number], WITH IVF OF NS @ 100ML/HR, TOLERATING WELL, FLUSHED WITH NS, FREE FROM ANY S/S OF INFILTRATION OR PHLEBITIS. PATIENT KEPT COMFORTABLE. BED IN LOWEST AND LOCKED POSITION. WILL CONTINUE TO CLOSELY MONITOR
[2017-06-13 20:00] VITALS: BP 140/65
--- NOTE | 2017-06-13 21:15 | NUR ---
RN NOTES PATIENT NOTED TO BE ANXIOUS AND AGITATED COMPARED TO HIS BASELINE, NOTED TO SOMETIMES GRAB GTUBE AND IV LINE. PATIENT REPOSITIONED, LINES AND TUBES HIDDEN WITH PILLOWS, ADMINISTERED ATIVAN GT ORDERED. WILL CONTINUE TO CLOSELY MONITOR
[2017-06-13] MEDS: CEFTRIAXONE 1 G in IV D5W 50 ML IV SCH (21:32)
--- NOTE | 2017-06-13 22:51 | NUR ---
RN NOTES PATIENT ENDORSED TO NURSE REYNA FOR GUILLERMINA
[2017-06-14 04:00] VITALS: BP 119/66
[2017-06-14] MEDS: IV NS 0.9% 1,000 ML IV PRN (06:27)
[2017-06-14] MEDS: FIBERSOURCE HN 1,000 ML BOTTLE GT PRN (06:27)
--- NOTE | 2017-06-14 07:10 | NUR ---
MS RN NOTES RECEIVED PATIENT IN BED, AWAKE. A//O X1, CONFUSED. ON OXYGEN AT 2LPM VIA NC, BREATHING EVEN AND NON LABORED, NO SOB. GTUBE FEEDING-FIBERSOURCE INFUSING AT 75ML/HR. APPEARS COMFORTABLE IN BED, HOB ELEVATED. BED LOW AND LOCKED. CALL LIGHT WITHIN REACH. WILL CONT TO MONITOR.
--- NOTE | 2017-06-14 07:35 | NUR ---
RN EOS NOTE PT REMAINED STABLE DURING THE SHIFT. NO ANY DISTRESS NOTED. IVF G TUBE FEEDING TOLERATED WELL. NO RESIDUAL. ASPIRATION PRECAUTION APPLIED. TOTAL CARE RENDERED . ENDORSED TO NEXT SHIFT RN FOR CONTINUITY OF CARE .
[2017-06-14 08:00] VITALS: BP 130/70
[2017-06-14] MEDS: SENNOSIDES 8.6 MG TABLET GT SCH (09:09)
[2017-06-14] MEDS: LEVETIRACETAM SOL (5 ML) 100 MG/ML UDC GT SCH (09:09)
[2017-06-14] MEDS: LamoTRIgine 100 MG TABLET PO SCH (09:09)
[2017-06-14] MEDS: SULFAMETH/TRIMETH 800/160 MG 1 UDTAB TABLET PO SCH (09:10)
[2017-06-14] MEDS: THIAMINE HCL 100 MG TABLET PO SCH (09:10)
[2017-06-14] MEDS: PANTOPRAZOLE 40 MG TABLET.DR PO SCH (09:10)
[2017-06-14] MEDS: MULTIVIT, IRON, MIN NO. 8, FA 1 TAB GT SCH (09:10)
[2017-06-14] MEDS: CALCITONIN,SALMON,SYNTHETIC 3.7 ML SPRAY.PUMP NS SCH (09:19)
--- NOTE | 2017-06-14 11:26 | NUR ---
PATIENT IS SEEN BY [facility]. PATIENT TO BE DISCHARGED HOME WITH HOME HEALTH TODAY, FAMILY IS AWARE.
[2017-06-14] MEDS: DIGOXIN 0.25 MG TABLET PO SCH (12:44)
--- NOTE | 2017-06-14 14:31 | NUR ---
MS RN DISCHARGED NOTES PATIENT HAS BEEN CLEARED FOR DISCHARGED HOME WITH HOME HEALTH. PATIENT IS CONFUSED, NON AMBULATORY, SKIN INTACT. COPIES OF DISCHARGE INSTRUCTION PROVIDED TO THE PATIENT, PRESCRIPTION MEDICATIONS AND BELONGINGS SEND WITH THE PATIENT UPON DC. V/S REMAINS STABLE, NO EPISODE OF SEIZURES OR FEVER DURING THE SHIFT PRIOR DC. PATIENT LEFT HOSP IN STABLE CONDITION VIA AMBULANCE.
== END 2017-06-14 14:15 | disposition home health service (06) | DRG 100 ==
LOC: ER 18:24 → TELE-TD 21:30 → TELE1 23:21 → MEDSG1 06-13 10:15
PROVIDERS: ADMIT Nurse Practitioner Acute Care; ATTEND Nurse Practitioner Acute Care
DX: G40.409 Other generalized epilepsy and epileptic syndromes, not intractable, without status epilepticus (principal); G82.50 Quadriplegia, unspecified; E44.1 Mild protein-calorie malnutrition; N39.0 Urinary tract infection, site not specified; I69.354 Hemiplegia and hemiparesis following cerebral infarction affecting left non-dominant side; E87.2 Acidosis; F03.90 Unspecified dementia, unspecified severity, without behavioral disturbance, psychotic disturbance, mood disturbance, and anxiety; D63.8 Anemia in other chronic diseases classified elsewhere; I10 Essential (primary) hypertension; I48.2 Chronic atrial fibrillation; J44.9 Chronic obstructive pulmonary disease, unspecified; I73.9 Peripheral vascular disease, unspecified; I25.10 Atherosclerotic heart disease of native coronary artery without angina pectoris; N40.0 Benign prostatic hyperplasia without lower urinary tract symptoms; Z74.01 Bed confinement status; Z99.3 Dependence on wheelchair; E03.9 Hypothyroidism, unspecified; Z95.0 Presence of cardiac pacemaker; E88.09 Other disorders of plasma-protein metabolism, not elsewhere classified; R13.10 Dysphagia, unspecified; Z93.1 Gastrostomy status; Z68.29 Body mass index [BMI] 29.0-29.9, adult; N31.9 Neuromuscular dysfunction of bladder, unspecified; R73.9 Hyperglycemia, unspecified; N41.9 Inflammatory disease of prostate, unspecified; F09 Unspecified mental disorder due to known physiological condition; H47.619 Cortical blindness, unspecified side of brain
CPT/HCPCS: 36415; 70450-TC; 71010-TC; 80048-TC; 80061-TC; 80076-TC; 80305; 81000-TC; 82542; 82962-TC; 83605-TC; 83735-TC; 84100-TC; 84153-TC; 84154-TC; 84443-TC; 84484-TC; 85025-TC; 85730-TC; 87040-TC; 87081-TC; 87086-TC; 97001-TC; A4606; A6402; J0696; J1953; J2405; J2543; J3370; J7030; J7060; Z7610